=== PATIENT | female | born 1985 | race Caucasian/White ===

== ENCOUNTER 2016-09-16 21:06 | Emergency (ER) | payer SELFPAY ==
[~2016-09-16] VITALS: Ht 154.9 cm; Wt 75.0 kg
[~2016-09-16 21:06] MED LIST: BACTRIM DS TAB1 EACH PO; BENADRYL25 MG PO; CLEOCIN HC150 MG/CAP PO; CYCLOBENZAPRIN7.5 MG PO; FLEXERIL10 MG PO; IBUPROFEN800 MG PO; LIDODERM5% TP; NORCO 325 MG-51 TAB PO; PEPCID 20MG TAB20 MG PO; PERCOCET 325 MG1 TA2 PO; PREDNISONE10 M1 PO; PRENATAL VITAMI1 TAB PO; TYLENOL 325MG325 MG PO
[2016-09-17 00:16] VITALS: BP 108/57
== END 2016-09-17 00:16 | disposition home or self-care (01) ==
LOC: ED 21:06
DX: G56.92 Unspecified mononeuropathy of left upper limb (principal)
CPT/HCPCS: J1885; J2360

== ENCOUNTER 2016-12-15 00:53 | Emergency (ER) | payer SELFPAY ==
[~2016-12-15] VITALS: Ht 154.9 cm; Wt 72.7 kg
[2016-12-15] MEDS ORDERED: PERCOCET 325 MG1 TA2 PO (01:43)
[2016-12-15] MEDS ORDERED: CLEOCIN HCL300 MG PO (01:43)
== END 2016-12-15 01:49 | disposition home or self-care (01) ==
LOC: ED 00:53
DX: K08.89 Other specified disorders of teeth and supporting structures (principal); R59.0 Localized enlarged lymph nodes; R68.84 Jaw pain; F17.200 Nicotine dependence, unspecified, uncomplicated

== ENCOUNTER 2016-12-18 05:30 | Emergency (ER) | payer SELFPAY ==
[~2016-12-18] VITALS: Ht 154.9 cm; Wt 72.7 kg
[~2016-12-18 05:30] MED LIST changes: +CLEOCIN HCL300 MG PO
[2016-12-18 05:37] VITALS: BP 110/68
[2016-12-18] MEDS ORDERED: KETOROLAC10 MG PO (06:25)
== END 2016-12-18 06:28 | disposition home or self-care (01) ==
LOC: ED 05:30
DX: K08.89 Other specified disorders of teeth and supporting structures (principal); F17.200 Nicotine dependence, unspecified, uncomplicated
CPT/HCPCS: J1885

== ENCOUNTER 2016-12-26 10:13 | Emergency (ER) | payer SELFPAY ==
[~2016-12-26] VITALS: Ht 154.9 cm; Wt 72.7 kg
[~2016-12-26 10:13] MED LIST changes: +KETOROLAC10 MG PO
[2016-12-26] MEDS ORDERED: PERCOCET 325 MG1 TA2 PO (10:22)
[2016-12-26 11:18] LABS: EOS # 0.2 (0.04-0.40); EOS % 2.1 % (1.0-5.0); HEMATOCRIT 42.6 % (37.0-47.0); HEMOGLOBIN 14.2 g/dL (12.5-16.0); LYMPH# 2.2 (1.50-4.00); MEAN CELL VOLUME 88 fl (78-100); MEAN CORPUSCULAR HEMOGLOBIN 29 pg (27-31); MEAN CORPUSCULAR HGB CONC 33 g/dL (33-37); MEAN PLATELET VOLUME 10.2 fl (7.4-10.4); MONO # 0.9 (0.20-0.80); NEU # 7.1 (1.40-6.50); PLATELET COUNT 333 K/mm3 (130-400); RED BLOOD COUNT 4.86 M/mm3 (4.10-5.30); RED CELL DISTRIBUTION WIDTH 13.7 % (11.5-14.5); WHITE BLOOD COUNT 10.5 K/mm3 (4.8-10.8)
[2016-12-26 11:24] LABS: BUN/CREATININE RATIO 18.3 (6.0-26.0); CALCIUM 9.4 mg/dL (8.4-10.2); POTASSIUM 4.2 mmol/L (3.6-5.0); TOTAL BILIRUBIN 0.5 mg/dL (0.2-1.3); TOTAL PROTEIN 7.5 g/dL (6.3-8.2)
[2016-12-26 11:26] LABS: URINE APPEARANCE CLOUDY; URINE BILIRUBIN NEGATIVE (NEGATIVE); URINE COLOR BROWN; URINE GLUCOSE NEGATIVE (NEGATIVE); URINE KETONE NEGATIVE (NEGATIVE); URINE NITRATE POSITIVE (NEGATIVE); URINE PROTEIN(semi-quant) 3+ mg/dL (NEGATIVE); URINE UROBILINOGEN NORMAL (NORMAL)
[2016-12-26 11:27] LABS: URINE BLOOD 250 ery/uL (NEGATIVE); URINE LEUKOCYTE ESTERASE 2+ (NEGATIVE); URINE WBC >50 /hpf (0-3)
[2016-12-26] MEDS ORDERED: BACTRIM DS TAB1 EACH PO (12:27)
[2016-12-26] MEDS ORDERED: PYRIDIUM200 M2 PO (12:27)
[2016-12-26 12:48] VITALS: BP 115/70
== END 2016-12-26 13:38 | disposition home or self-care (01) ==
LOC: ED 10:13
PROVIDERS: Physician Assistant
DX: N39.0 Urinary tract infection, site not specified (principal); R31.9 Hematuria, unspecified; N36.8 Other specified disorders of urethra
CPT/HCPCS: J1885; J2405; J7030

== ENCOUNTER 2017-02-25 19:42 | Emergency (ER) | payer SELFPAY ==
[~2017-02-25] VITALS: Ht 154.9 cm; Wt 72.7 kg
[~2017-02-25 19:42] MED LIST changes: +PYRIDIUM200 M2 PO
[2017-02-25] MEDS ORDERED: GOOD NEIGHBOR200 M1 PO (20:05)
[2017-02-25] MEDS ORDERED: NIGHT-TIME COL300 ML PO (20:05)
[2017-02-25 20:53] LABS: EOS # 0.2 (0.04-0.40); EOS % 1.4 % (1.0-5.0); HEMATOCRIT 37.8 % (37.0-47.0); HEMOGLOBIN 12.6 g/dL (12.5-16.0); LYMPH# 2.5 (1.50-4.00); MEAN CELL VOLUME 87 fl (78-100); MEAN CORPUSCULAR HEMOGLOBIN 29 pg (27-31); MEAN CORPUSCULAR HGB CONC 33 g/dL (33-37); MONO # 1.1 (0.20-0.80); PLATELET COUNT 315 K/mm3 (130-400); RED BLOOD COUNT 4.33 M/mm3 (4.10-5.30); RED CELL DISTRIBUTION WIDTH 13.9 % (11.5-14.5); WHITE BLOOD COUNT 14.6 K/mm3 (4.8-10.8)
[2017-02-25 20:55] LABS: NEU # 10.7 (1.40-6.50)
[2017-02-25 20:58] LABS: BUN/CREATININE RATIO 10.3 (6.0-26.0); CALCIUM 9.1 mg/dL (8.4-10.2); POTASSIUM 3.4 mmol/L (3.6-5.0)
[2017-02-25] MEDS ORDERED: TESSALON PERLE100 M1 PO (21:50)
[2017-02-25] MEDS ORDERED: ZITHROMAX 250M250 MG PO (21:50)
[2017-02-25 22:12] VITALS: BP 135/57
== END 2017-02-25 22:12 | disposition home or self-care (01) ==
LOC: ED 19:42
PROVIDERS: Family Medicine
DX: J02.9 Acute pharyngitis, unspecified (principal); J40 Bronchitis, not specified as acute or chronic; F17.200 Nicotine dependence, unspecified, uncomplicated

== ENCOUNTER 2017-08-06 13:52 | Emergency (ER) | payer SELFPAY ==
[~2017-08-06 13:52] MED LIST changes: +GOOD NEIGHBOR200 M1 PO; +NIGHT-TIME COL300 ML PO; +TESSALON PERLE100 M1 PO; +ZITHROMAX 250M250 MG PO
[2017-08-06] MEDS ORDERED: NORCO 325 MG-51 TA1 PO (15:58)
[2017-08-06 16:21] VITALS: BP 114/76
== END 2017-08-06 16:25 | disposition home or self-care (01) ==
LOC: ED 13:52
DX: K08.89 Other specified disorders of teeth and supporting structures (principal)

== ENCOUNTER 2017-09-30 04:01 | Emergency (ER) | payer SELFPAY ==
[~2017-09-30 04:01] MED LIST changes: +NORCO 325 MG-51 TA1 PO
[2017-09-30 05:12] LABS: PH-URINE 5.5 (5.0 - 8.0); URINE APPEARANCE CLEAR; URINE BILIRUBIN NEGATIVE (NEGATIVE); URINE BLOOD NEGATIVE (NEGATIVE); URINE COLOR STRAW; URINE GLUCOSE NEGATIVE (NEGATIVE); URINE KETONE NEGATIVE (NEGATIVE); URINE LEUKOCYTE ESTERASE NEGATIVE (NEGATIVE); URINE NITRATE NEGATIVE (NEGATIVE); URINE PROTEIN(semi-quant) NEGATIVE (NEGATIVE); URINE UROBILINOGEN NORMAL (NORMAL)
[2017-09-30 12:20] VITALS: BP 108/67
== END 2017-09-30 12:20 | disposition home or self-care (01) ==
LOC: ED 04:01
PROVIDERS: Family Medicine
DX: F10.120 Alcohol abuse with intoxication, uncomplicated (principal); F15.10 Other stimulant abuse, uncomplicated
CPT/HCPCS: J2060